=== PATIENT | male | born 1995 | race Asian ===

== ENCOUNTER 2018-11-11 19:04 | Emergency (ER) | payer OTHER ==
[~2018-11-11] VITALS: Ht 180.3 cm; Wt 99.8 kg
[2018-11-11 19:52] LABS: POTASSIUM 3.3 mmol/L (3.6-5.2); SODIUM 138 mmol/L (136-145)
[2018-11-11 19:53] LABS: PLATELET COUNT 258 K/uL (142-355)
[2018-11-11 21:48] VITALS: BP 128/75; TEMP 98.1
== END 2018-11-11 22:05 | disposition home or self-care (01) ==
LOC: ED 19:04
PROVIDERS: Emergency Medicine
DX: E86.0 Dehydration (principal); T40.7X5A Adverse effect of cannabis (derivatives), initial encounter; T78.8XXA Other adverse effects, not elsewhere classified, initial encounter
CPT/HCPCS: 36415; 80053; 80307; 81000; 82550; 83036; 84484; 85027; 93005; 96360; 96361; 99284; J2310; J7120